=== PATIENT | male | born 1975 | race Hispanic/Latino ===

== ENCOUNTER 2017-08-14 11:08 | Emergency (ER) | payer BC ==
[2017-08-14] MEDS ORDERED: METOCLOPRAMIDE 10 MG/2mL INJ ONE (12:05)
[2017-08-14] MEDS ORDERED: KETOROLAC 30 MG/ML INJ ONE (12:06)
[2017-08-14] MEDS ORDERED: NA CHLORIDE 0.9% 1,000 ML ONE (12:06)
[2017-08-14] MEDS ORDERED: DIPHENHYDRAMINE 50 MG/ML VIAL ONE (12:06)
--- NOTE | 2017-08-14 13:10 | EDPHYS ---
Physician Documentation [facility] Name: Zacarias Anna Age: 41 yrs Sex: Male : 1975 Arrival Date: 08/14/2017 Time: 11:10 Bed 14 Private MD: ED Physician Von Claros HPI: 08/14 13:01 This 41 yrs old Male presents to ER via Ambulatory with complaints of gs Dizziness, Headache. 13:01 The patient complains of pain to the left base of the skull. The patient describes the gs headache as throbbing. Onset: The symptoms/episode began/occurred 1 month(s) ago, after neck surgery intermittent episodes, told was part of healing process by surgeon, for past 2 days has had some mild dizziness worse with movement of head. he says this is new exclusive of his headache which has been chronic.. Associated signs and symptoms: Pertinent negatives: altered mental status, paresthesias, vomiting. Severity of symptoms: At its worst the pain was moderate, in the emergency department the pain is unchanged. The patient has experienced similar episodes in the past, chronically. Historical: - Allergies: 11:42 No Known Allergies; sv - Home Meds: 11:42 Fioricet Oral [Active]; Adderall XR Oral [Active]; Naproxen Oral [Active]; Tramadol sv Oral [Active]; - PSHx: 11:42 cervical surgery; sv - Immunization history:: Adult Immunizations up to date. - Social history:: Smoking status: Patient/guardian denies using tobacco. - Ebola Screening: : Patient negative for fever greater than or equal to 101.5 degrees Fahrenheit, and additional compatible Ebola Virus Disease symptoms. ROS: 13:01 All other systems are negative. gs Exam: 13:01 Head/Face: Normocephalic, atraumatic. Eyes: Pupils equal round and reactive to light, gs extra-ocular motions intact. Lids and lashes normal. Conjunctiva and sclera are non-icteric and not injected. Cornea within normal limits. Periorbital areas with no swelling, redness, or edema. ENT: Nares patent. No nasal discharge, no septal abnormalities noted. Tympanic membranes are normal and external auditory canals are clear. Oropharynx with no redness, swelling, or masses, exudates, or evidence of obstruction, uvula midline. Mucous membranes moist. Neck: Trachea midline, no thyromegaly or masses palpated, and no cervical lymphadenopathy. Supple, full range of motion without nuchal rigidity, or vertebral point tenderness. No Meningismus. Chest/axilla: Normal chest wall appearance and motion. Nontender with no deformity. No lesions are appreciated. Cardiovascular: Regular rate and rhythm with a normal S1 and S2. No gallops, murmurs, or rubs. Normal PMI, no JVD. No pulse deficits. Respiratory: Lungs have equal breath sounds bilaterally, clear to auscultation and percussion. No rales, rhonchi or wheezes noted. No increased work of breathing, no retractions or nasal flaring. Abdomen/GI: Soft, non-tender, with normal bowel sounds. No distension or tympany. No guarding or rebound. No evidence of tenderness throughout. Back: No spinal tenderness. No costovertebral tenderness. Full range of motion. Skin: Warm, dry with normal turgor. Normal color with no rashes, no lesions, and no evidence of cellulitis. MS/ Extremity: Pulses equal, no cyanosis. Neurovascular intact. Full, normal range of motion. 13:01 Constitutional: The patient appears alert, awake. 13:01 Neuro: Orientation: is normal, Mentation: is normal, Cranial nerves: CN II- XII are normal as tested, Cerebellar function: Romberg testing is negative, normal finger to nose testing, Motor: is normal, Sensation: is normal, Gait: is steady. Vital Signs: 11:30 BP 122 / 91; Pulse 96; Resp 19; Temp 98.2(O); Pulse Ox 96% on R/A; Weight 88.45 kg (R); rb1 Height 5 ft. 10 in. (177.80 cm) (R); Pain 8/10; 12:30 BP 123 / 78; Pulse 63; Resp 18; Pulse Ox 95% on R/A; rb1 13:27 BP 120 / 75; Pulse 73; Resp 19; Pulse Ox 95% on R/A; rb1 13:38 BP 121 / 74; Pulse 69; Resp 17; Pulse Ox 96% on R/A; rb1 11:30 Body Mass Index 27.98 (88.45 kg, 177.80 cm) rb1 MDM: 11:35 Patient medically screened. gs 13:01 Differential diagnosis: migraine, tension headache, vasomotor headache, dehydration, gs benign vertigo. Data reviewed: vital signs, nurses notes. Response to treatment: the patient's symptoms have markedly improved after treatment, the patient's symptoms have resolved after treatment, and as a result, I will discharge patient. 08/14 11:36 Order name: EKG; Complete Time: 11:37 gs 08/14 11:36 Order name: EKG - Nurse/Tech; Complete Time: 13:20 gs Administered Medications: 12:05 Drug: NS 0.9% 1000 ml Route: IV; Rate: 1 bolus; Site: right antecubital; rb1 13:08 Follow up: IV Status: Completed infusion rb1 12:05 Drug: Reglan 5 mg Route: IVP; Site: right antecubital; rb1 13:23 Follow up: Response: No adverse reaction rb1 12:05 Drug: Benadryl 25 mg Route: IVP; Site: right antecubital; rb1 13:23 Follow up: Response: No adverse reaction rb1 12:05 Drug: TORadol 30 mg Route: IVP; Site: right antecubital; rb1 12:30 Follow up: Response: No adverse reaction; Pain is decreased rb1 Disposition: 08/14/17 13:09 Discharged to Home. Impression: Headache, Benign paroxysmal vertigo, unspecified ear. - Condition is Stable. - Discharge Instructions: Benign Positional Vertigo, General Headache Without Cause. - Medication Reconciliation Form, Thank You Letter, Antibiotic Education, Prescription Opioid Use form. - Follow up: Private Physician; When: 2 - 3 days; Reason: Re-evaluation by your physician. Signatures: Katie Tirado RN RN Isamar Hardy RN RN rb1 Von Claros MD MD Corrections: (The following items were deleted from the chart) 13:41 13:09 08/14/2017 13:09 Discharged to Home. Impression: Headache; Benign paroxysmal rb1 vertigo, unspecified ear. Condition is Stable. Forms are Medication Reconciliation Form, Thank You Letter, Antibiotic Education, Prescription Opioid Use. Follow up: Private Physician; When: 2 - 3 days; Reason: Re-evaluation by your physician.
--- NOTE | 2017-08-14 13:10 | ER ---
Nurse's Notes [facility] Name: Zacarias Anna Age: 41 yrs Sex: Male : 1975 Arrival Date: 08/14/2017 Time: 11:10 Bed 14 Private MD: Diagnosis: Headache;Benign paroxysmal vertigo, unspecified ear Presentation: 08/14 11:26 Presenting complaint: Patient states: headache, edwardo neck and shoulder pain, sv photosensitivity that started today while driving. Pt stated he pulled over and "felt weird" went to urgent care was evaluated and instructed him to come here to the ER. Pt stated he had cervical surgery in May 2017. Transition of care: patient was not received from another setting of care. Onset of symptoms was August 14, 2017. Care prior to arrival: None. 11:26 Method Of Arrival: Ambulatory sv 11:26 Acuity: GERALD 3 sv 11:30 Risk Assessment: Do you want to hurt yourself or someone else? Patient reports no rb1 desire to harm self or others. Initial Sepsis Screen: Does the patient meet any 2 criteria? No. Patient's initial sepsis screen is negative. Does the patient have a suspected source of infection? No. Patient's initial sepsis screen is negative. Triage Assessment: 11:30 Headache History: Denies prior headaches. rb1 11:30 Pain: Pain began suddenly, Also complains of photophobia. rb1 Historical: - Allergies: 11:42 No Known Allergies; sv - Home Meds: 11:42 Fioricet Oral [Active]; Adderall XR Oral [Active]; Naproxen Oral [Active]; Tramadol sv Oral [Active]; - PSHx: 11:42 cervical surgery; sv - Immunization history:: Adult Immunizations up to date. - Social history:: Smoking status: Patient/guardian denies using tobacco. - Ebola Screening: : Patient negative for fever greater than or equal to 101.5 degrees Fahrenheit, and additional compatible Ebola Virus Disease symptoms. Screenin:30 Abuse screen: Denies threats or abuse. Nutritional screening: No deficits noted. rb1 Tuberculosis screening: No symptoms or risk factors identified. Fall Risk None identified. Assessment: 11:30 General: Appears uncomfortable, Behavior is calm, cooperative, Denies fever. Pain: rb1 Complains of pain in neck Pain currently is 8 out of 10 on a pain scale. Neuro: Level of Consciousness is awake, alert, obeys commands, Oriented to person, place, time, situation. Neuro: Reports numbness in right arm and left arm. Cardiovascular: Capillary refill < 3 seconds is brisk in bilateral fingers. Respiratory: Airway is patent Respiratory effort is even, unlabored, Respiratory pattern is regular, symmetrical. GI: Reports diarrhea, nausea. : No signs and/or symptoms were reported regarding the genitourinary system. Derm: Skin is pink, warm \\T\\ dry. 12:30 Reassessment: Patient appears in no apparent distress at this time. No changes from [facility] previously documented assessment. 13:25 Reassessment: Patient appears in no apparent distress at this time. Patient and/or rb1 family updated on plan of care and expected duration. Pain level reassessed. Patient is alert, oriented x 3, equal unlabored respirations, skin warm/dry/pink. Vital Signs: 11:30 BP 122 / 91; Pulse 96; Resp 19; Temp 98.2(O); Pulse Ox 96% on R/A; Weight 88.45 kg (R); rb1 Height 5 ft. 10 in. (177.80 cm) (R); Pain 8/10; 12:30 BP 123 / 78; Pulse 63; Resp 18; Pulse Ox 95% on R/A; rb1 13:27 BP 120 / 75; Pulse 73; Resp 19; Pulse Ox 95% on R/A; rb1 13:38 BP 121 / 74; Pulse 69; Resp 17; Pulse Ox 96% on R/A; rb1 11:30 Body Mass Index 27.98 (88.45 kg, 177.80 cm) [facility] ED Course: 11:10 Patient arrived in ED. as 11:26 Von Claros MD is Attending Physician. gs 11:26 Arm band placed on right wrist. Patient placed in an exam room, on a stretcher. sv 11:30 Patient has correct armband on for positive identification. Bed in low position. Call [facility] light in reach. Side rails up X 1. Pulse ox on. NIBP on. 11:41 Triage completed. sv 11:48 Isamar Hardy, RN is Primary Nurse. rb1 11:55 Inserted saline lock: 22 gauge in right antecubital area, using aseptic technique. rb1 12:35 EKG done, by coffee machine technician. reviewed by Vno Claros MD. at1 13:40 No provider procedures requiring assistance completed. IV discontinued, intact, rb1 bleeding controlled, No redness/swelling at site. Pressure dressing applied. Administered Medications: 12:05 Drug: NS 0.9% 1000 ml Route: IV; Rate: 1 bolus; Site: right antecubital; rb1 13:08 Follow up: IV Status: Completed infusion rb1 12:05 Drug: Reglan 5 mg Route: IVP; Site: right antecubital; rb1 13:23 Follow up: Response: No adverse reaction rb1 12:05 Drug: Benadryl 25 mg Route: IVP; Site: right antecubital; rb1 13:23 Follow up: Response: No adverse reaction rb1 12:05 Drug: TORadol 30 mg Route: IVP; Site: right antecubital; rb1 12:30 Follow up: Response: No adverse reaction; Pain is decreased rb1 Outcome: 13:09 Discharge ordered by . gs 13:40 Discharged to home ambulatory. rb1 13:40 Condition: stable 13:40 Discharge instructions given to patient, Instructed on discharge instructions, follow up and referral plans. Demonstrated understanding of instructions, follow-up care, Prescriptions given X none 13:41 Patient left the ED. rb1 Signatures: Katie Tirado RN RN sv Martinez, Amelia as gonzales, Amanda, database architect EKG Tat1 Isamar Hardy, PK RN rb1 Von Claros MD MD Corrections: (The following items were deleted from the chart) 13:40 13:39 Pain: Pain began rb1 rb1
--- NOTE | 2017-08-14 15:39 | EKG ---
Test Date: 2017-08-14 Test Time: 12:26:39 Compass Operator: ABEL MEASUREMENT RESULTS: Intervals: Rate: 65 AR: 146 QRSD: 90 QT: 378 QTc: 393 [place]: P: 10 AR: 146 QRS: 58 T: 25 INTERPRETIVE STATEMENTS: Normal sinus rhythm Normal ECG No previous ECG available for comparison Electronically Signed On 08-14-17 15:38:12 CDT by Greyson Devine
== END 2017-08-14 13:41 | disposition home or self-care (01) ==
LOC: ER 11:08
DX: R51 Headache (principal); H81.10 Benign paroxysmal vertigo, unspecified ear
CPT/HCPCS: 93005; 96361; 96374; 96375; 99284; J2765; J7030